=== PATIENT | female | born 1950 | race Caucasian/White ===

== ENCOUNTER 2017-10-18 22:58 | Observation (INO) | payer MEDICARE, OTHER ==
[~2017-10-18] VITALS: Ht 158.8 cm; Wt 62.7 kg
[~2017-10-18 22:58] MED LIST: BETA0.052 TOPICAL; BUPR150T3 PO; ESTR42.5V VAGINAL; LEVO75TA3 PO; META1TAB19 PO
[2017-10-18 23:20] VITALS: BP 140/71; PULSE 57; RESP 16; TEMP 98.4; O2SAT 96
[2017-10-18 23:28] VITALS: RESP 16; O2SAT 96
[2017-10-18 23:30] VITALS: BP 140/71; PULSE 60; RESP 14; O2SAT 97
[2017-10-18] MEDS ORDERED: SODIUM CHLORIDE 0.9% FLUSH 10 ML FLUSH IVF PRN (23:30)
[2017-10-18] MEDS ORDERED: ASPIRIN 81 MG CHEW TAB PO ONE (23:30)
--- NOTE | 2017-10-18 23:30 | PD ---
HPI Chief Complaint: Cardiac Complaint Time Seen by Provider: 23:02 Travel History International Travel<30 days: No Contact w/Intl Traveler<30days: No Traveled to known affect area: No History of Present Illness HPI 67-year-old female presents to the emergency department by private transportation the care of her spouse for evaluation of 5-10 minutes of retrosternal chest squeezing 7/10 intensity with radiation to both upper extremities. Patient reports that she had associated nausea and brief diaphoresis. Patient also felt short of breath during this experience. Currently discomfort is 1-2/10 in intensity and more of an awareness of actual pain or squeeze. Patient took no medications prior to arrival to the emergency department. No prior history of similar symptoms. Patient states over the past 2 days she has noted some discomfort in her upper back that at times goes into her arms but has had no chest discomfort or chest squeezing. No recent long distance travel protracted bedrest or surgical procedure no lower extremity pain or swelling. No history of clotting disorder. Pain is not pleuritic in nature. No hemoptysis. Patient denies any shortness of breath at this time. Patient feels very anxious and says something is not right. Patient denies abdominal pain. No arm or leg numbness tingling or weakness or pallor. Patient does have history of chronic pain syndrome with multiple back surgeries and does have history of disc disease of the cervical spine. Patient takes antianxiety medication. Patient has hypothyroidism. No report of hypertension dyslipidemia diabetes tobaccoism or coronary artery disease. PFSH Past Medical History Narrative Medical Hypothyroidism mitral valve prolapse multiple spinal surgery; no tobacco use; nursing notes reviewed Menopausal: Yes Past Surgical History Gynecologic Surgery: Yes (BREAST LUMPECTOMY) Neurologic Surgery: Yes (MULTIPLE SPINAL SURGERIES) Social History Alcohol Use: Yes (2 GLASSES WINE PER WEEK) Tobacco Use: No Allergies-Medications (Allergen,Severity, Reaction): Coded Allergies: orange (Unverified Allergy, Severe, 02/11/17) Reported Meds & Prescriptions Reported Meds & Active Scripts Active Bupropion HCl ER 24 HR (Bupropion HCl) 150 Mg Tab 150 Mg PO DAILY Betamethasone Dipropionate Topical 0.05% Cream 1 Applic TOPICAL BID Levothyroxine (Levothyroxine Sodium) 75 Mcg Tab 75 Mcg PO DAILY Estrace Vaginal (Estradiol) 0.01% Cream 1 Appl VAGINAL TWICE WEEKLY Reported Metaxalone 800 Mg Tab 800 Mg PO TID Review of Systems Except as stated in HPI: all other systems reviewed are Neg General / Constitutional: No: Fever, Chills HENT: No: Congestion Cardiovascular: Positive: Chest Pain or Discomfort, Diaphoresis Respiratory: Positive: Shortness of Breath Gastrointestinal: Positive: Nausea, No: Abdominal Pain Genitourinary: No: Flank Pain Musculoskeletal: No: Myalgias, Arthralgias Skin: No Rash Neurologic: No: Weakness, Dizziness, Syncope, Focal Abnormalities, Coordination Problem Psychiatric: Positive: Anxiety Hematologic/Lymphatic: No: Lymph Node Enlargement Physical Exam Narrative GENERAL: Well-developed well-nourished female no acute distress no respiratory distress appears mildly anxious SKIN: Warm and dry. HEAD: Normocephalic. EYES: No scleral icterus. No injection or drainage. NECK: Supple, trachea midline. No JVD or lymphadenopathy. CARDIOVASCULAR: Regular rate and rhythm without murmurs, gallops, or rubs. Bilateral radial and dorsalis pedis pulses 2+ to palpation and equal. RESPIRATORY: Breath sounds equal bilaterally. No accessory muscle use. GASTROINTESTINAL: Abdomen soft, non-tender, nondistended. MUSCULOSKELETAL: No cyanosis, or edema. No pallor or coolness of the extremities ; no edema or erythema capillary refill is brisk and less than 2 seconds. BACK: Nontender without obvious deformity. No CVA tenderness. Data Data Last Documented VS Vital Signs Date Time Temp Pulse Resp B/P (MAP) Pulse Ox O2 Delivery O2 Flow Rate FiO2 10/19/17 00:15 132/70 (90) 142/74 (96) 10/18/17 23:29 96 Room Air 10/18/17 23:28 16 10/18/17 23:20 98.4 57 Orders Orders Electrocardiogram (10/18/17 23:20) Ckmb (Isoenzyme) Profile (10/18/17 23:20) Complete Blood Count With Diff (10/18/17 23:20) Comprehensive Metabolic Panel (10/18/17 23:20) Magnesium (Mg) (10/18/17 23:20) Prothrombin Time / Inr (Pt) (10/18/17 23:20) Act Partial Throm Time (Ptt) (10/18/17 23:20) Troponin I (10/18/17 23:20) Lipase (10/18/17 23:20) Ecg Monitoring (10/18/17 23:20) Bilateral Bp Monitoring (10/18/17:20) Iv Access Insert/Monitor (10/18/17:20) Oximetry (10/18/17:20) Oxygen Administration (10/18/17:20) Aspirin Chew (Aspirin Chew) (10/18/17 23:30) Sodium Chloride 0.9% Flush (Ns Flush) (10/18/17 23:30) Chest, Pa & Lat (10/18/17 23:20) Sodium Chlor 0.9% 1000 Ml Inj (Ns 1000 M (10/18/17 23:30) Ketorolac Inj (Toradol Inj) (10/19/17 00:30) Admit Order (Ed Use Only) (10/19/17 ) Software Engineer / Telemetry [email or web address] (10/19/17 00:33) Diet Heart Healthy (10/19/17 Breakfast) Activity Oob With Assistance (10/19/17 00:33) Notify Dr: Other (10/19/17 00:33) Activity Bed Rest With Brp (10/19/17 00:33) Vital Signs (Adult) Q4H (10/19/17 00:33) Cardiac Rhythm .As Directed (10/19/17 00:33) Notify Dr: Other .PRN (10/19/17 00:33) Notify Parameters (10/19/17 00:33) Resp Oxygen Nasal Cannula (10/19/17 ) Ckmb (Isoenzyme) Profile (10/19/17 02:30) Ckmb (Isoenzyme) Profile (10/19/17 05:30) Troponin I (10/19/17 02:30) Troponin I (10/19/17 05:30) Electrocardiogram (10/19/17 02:30) Electrocardiogram (10/19/17 05:30) ^ Obtain (10/19/17 00:33) Sodium Chloride 0.9% Flush (Ns Flush) (10/19/17 00:45) Sodium Chloride 0.9% Flush (Ns Flush) (10/19/17 09:00) Nitroglycerin Sl (Nitrostat Sl) (10/19/17 00:45) Labs Laboratory Tests Test 10/18/17 23:25 White Blood Count 5.6 TH/MM3 Red Blood Count 4.41 MIL/MM3 Hemoglobin 13.9 GM/DL Hematocrit 40.5 % Mean Corpuscular Volume 91.8 FL Mean Corpuscular Hemoglobin 31.5 PG Mean Corpuscular Hemoglobin Concent 34.3 % Red Cell Distribution Width 12.1 % Platelet Count 190 TH/MM3 Mean Platelet Volume 8.2 FL Neutrophils (%) (Auto) 48.8 % Lymphocytes (%) (Auto) 40.8 % Monocytes (%) (Auto) 7.6 % Eosinophils (%) (Auto) 1.2 % Basophils (%) (Auto) 1.6 % Neutrophils # (Auto) 2.7 TH/MM3 Lymphocytes # (Auto) 2.3 TH/MM3 Monocytes # (Auto) 0.4 TH/MM3 Eosinophils # (Auto) 0.1 TH/MM3 Basophils # (Auto) 0.1 TH/MM3 CBC Comment DIFF FINAL Differential Comment Prothrombin Time 10.2 SEC Prothromb Time International Ratio 1.0 RATIO Activated Partial Thromboplast Time 24.0 SEC Blood Urea Nitrogen 26 MG/DL Creatinine 1.00 MG/DL Random Glucose 115 MG/DL Total Protein 7.1 GM/DL Albumin 3.7 GM/DL Calcium Level 9.0 MG/DL Magnesium Level 2.3 MG/DL Alkaline Phosphatase 53 U/L Aspartate Amino Transf (AST/SGOT) 25 U/L Alanine Aminotransferase (ALT/SGPT) 22 U/L Total Bilirubin 0.2 MG/DL Sodium Level 141 MEQ/L Potassium Level 4.1 MEQ/L Chloride Level 108 MEQ/L Carbon Dioxide Level 27.3 MEQ/L Anion Gap 6 MEQ/L Estimat Glomerular Filtration Rate 55 ML/MIN Total Creatine Kinase 63 U/L Troponin I LESS THAN 0.02 NG/ML Lipase 106 U/L [facility] Medical Decision Making Medical Screen Exam Complete: Yes Emergency Medical Condition: Yes Medical Record Reviewed: Yes Interpretation(s) EKG: Sinus bradycardia rate [address] elevation or injury pattern change noted Last Impressions Chest X-Ray 10/18/170 Signed Impressions: Service Date/Time: Wednesday, October 18, 2017 23:39 - CONCLUSION: No acute disease. Kenn Trevino MD CBC & BMP Diagram 10/18/17 23:25 Total Protein 7.1, Albumin 3.7, Calcium Level 9.0, Magnesium Level 2.3, Alkaline Phosphatase 53, Aspartate Amino Transf (AST/SGOT) 25, Alanine Aminotransferase (ALT/SGPT) 22, Total Bilirubin 0.2 Vital Signs Date Time Temp Pulse Resp B/P (MAP) Pulse Ox O2 Delivery O2 Flow Rate FiO2 10/19/17 00:15 132/70 (90) 142/74 (96) 10/18/17 23:29 96 Room Air 10/18/17 23:28 16 96 Room Air 10/18/17 23:20 98.4 57 16 140/71 (94) 96 10/18/17 23:20 57 16 96 Room Air Troponin: Less than 0.02, not elevated; CK total 63, not elevated Differential Diagnosis Chest pain, ACS, myocardial infarction, aortic dissection, PE, esophageal spasm Narrative Course Patient placed on classroom monitor IV access obtained patient administered aspirin 162 mg by mouth chewed an EKG performed shows sinus bradycardia rate of [address] elevation or injury pattern change noted @ 00:25 cp 0/10 but c/o headache ---toradol 30 mg iv administered Patient is aware of recommendation for observation admission via chest pain center protocol Physician Communication Physician Communication discussed with Dr Chacon --beef ribber obs Diagnosis Primary Impression: Chest pain Admitting Information Admitting Physician Requests: Observation Caitlyn Michaud MD Oct 18, 2017 23:30
[2017-10-18] MEDS: SODIUM CHLOR 0.9% 1000 ML INJ 1,000 ML IV SCH (23:37)
[2017-10-18 23:42] LABS: AUTOMATED NEUTROPHIL # 2.7 TH/MM3 (1.8-7.7); BASOPHIL # 0.1 TH/MM3 (0-0.2); BASOPHIL % 1.6 % (0.0-2.0); EOSINOPHIL # 0.1 TH/MM3 (0-0.4); EOSINOPHIL % 1.2 % (0.0-4.0); HEMATOCRIT 40.5 % (35.0-46.0); HEMOGLOBIN 13.9 GM/DL (11.6-15.3); LYMPH % 40.8 % (9.0-44.0); LYMPHOCYTE # 2.3 TH/MM3 (1.0-4.8); MEAN CELL VOLUME 91.8 FL (80.0-100.0); MEAN CORPUSCULAR HEMOGLOBIN 31.5 PG (27.0-34.0); MEAN CORPUSCULAR HGB CONC 34.3 % (32.0-36.0); MEAN PLATELET VOLUME 8.2 FL (7.0-11.0); MONO % 7.6 % (0.0-8.0); MONOCYTE # 0.4 TH/MM3 (0-0.9); NEUT % 48.8 % (16.0-70.0); PLATELET COUNT 190 TH/MM3 (150-450); RED BLOOD COUNT 4.41 MIL/MM3 (4.00-5.30); RED CELL DISTRIBUTION WIDTH 12.1 % (11.6-17.2); WHITE BLOOD COUNT 5.6 TH/MM3 (4.0-11.0)
[2017-10-18 23:45] LABS: CHLORIDE 108 MEQ/L (98-107); SODIUM (NA) 141 MEQ/L (136-145)
[2017-10-18 23:50] LABS: PROTHROMBIN TIME - PATIENT 10.2 SEC (9.8-11.6)
[2017-10-18 23:52] LABS: ALBUMIN 3.7 GM/DL (3.4-5.0); BICARBONATE 27.3 MEQ/L (21.0-32.0); BLOOD UREA NITROGEN 26 MG/DL (7-18); GLUCOSE,RANDOM 115 MG/DL (74-106); MAGNESIUM 2.3 MG/DL (1.5-2.5)
[2017-10-18 23:55] LABS: ALT (GPT) 22 U/L (10-53); AST (GOT) 25 U/L (15-37); GLOMERULAR FILTRATION RATE 55 ML/MIN (>89)
[2017-10-18 23:56] LABS: TOTAL BILIRUBIN ADULT 0.2 MG/DL (0.2-1.0); TOTAL PROTEIN 7.1 GM/DL (6.4-8.2)
[2017-10-18 23:58] LABS: ALKALINE PHOSPHATASE 53 U/L (45-117)
[2017-10-19] VITALS (14 sets, daily range): BP systolic 123–151; BP diastolic 60–75; PULSE 50–58; RESP 14–19; TEMP 97.7–98.4; O2SAT 95–100
[2017-10-19] LABS: TROPONIN I LESS THAN 0.02 NG/ML (0.02-0.05)
--- NOTE | 2017-10-19 00:18 | RADRPT ---
EXAM DATE/TIME: 10/18/2017 23:39 [facility] COMPARISON: No previous studies available for comparison. INDICATIONS : Substernal chest pain. MEDICAL HISTORY : Mitral valve prolapse. SURGICAL HISTORY : Fusion, cervical. Right breast lumpectomy. ENCOUNTER: Initial ACUITY: 1 day PAIN SCORE: 4/10 LOCATION: chest Substernal. FINDINGS: PA and lateral views of the chest demonstrate the lungs to be symmetrically aerated without evidence of mass, infiltrate or effusion. The cardiomediastinal contours are unremarkable. Osseous structure s are intact. CONCLUSION: No acute disease. Kenn Trevino MD on October 19, 2017 at 0:14 Board Certified Radiologist. This report was verified electronically.
[2017-10-19] MEDS ORDERED: KETOROLAC TROMETHAMINE 30 MG/ML (IVP) VIAL IV PUSH ONE (00:30)
[2017-10-19] MEDS ORDERED: SODIUM CHLORIDE 0.9% FLUSH 10 ML FLUSH IV FLUSH PRN (00:45)
[2017-10-19] MEDS ORDERED: NITROGLYCERIN 0.4 MG SL 25 TABS/BTL SL PRN (00:45)
[2017-10-19 02:49] LABS: TROPONIN I LESS THAN 0.02 NG/ML (0.02-0.05)
[2017-10-19 06:14] LABS: TROPONIN I LESS THAN 0.02 NG/ML (0.02-0.05)
[2017-10-19] MEDS: SODIUM CHLOR 0.9% 1000 ML INJ 1,000 ML IV SCH (08:39)
[2017-10-19] MEDS ORDERED: SODIUM CHLORIDE 0.9% FLUSH 10 ML FLUSH IV FLUSH SCH (09:00)
[2017-10-19] MEDS ORDERED: ASPIRIN 325 MG TAB PO SCH (09:00)
--- NOTE | 2017-10-19 09:34 | HHI.HP ---
[facility] Vera Moe MD Admission Diagnosis Chest pain Diagnoses: Chief Complaint: Chest pain Travel History International Travel<30 Days: No Contact w/Intl Traveler <30 Da: No Traveled to Known Affected Are: No History of Present Illness This is a 67-year-old female patient with a known medical history o hypothyroidism and mitral valve prolapse who presented to the ED with complaints of chest pain. Patient states last evening while at rest she developed a midsternal chest pain that was characterized as squeezing and pressure in nature, patient states the pain radiated through her back and down her left arm. Patient does admit to associated diaphoresis, nausea and shortness of breath although denies any associated vomiting. Patient states she is never had this type of pain before. The chest pain was rated a 7 out of 10 at its worst on pain scale, lasted several minutes and then went away on its own. Patient denies any known relieving or aggravating factors. Patient does state she has a history of back pain and it has been worse for the past couple days. She sees a pain specialist and has underwent multiple spinal surgeries. Patient denies any tobacco history. Denies any significant family medical history of heart disease. Was diagnosed with mitral valve prolapse as a child. Denies any recent illness including fever, chills, cough, abdominal pain, nausea, vomiting, diarrhea or dysuria. Review of Systems Constitutional: DENIES: Fatigue, Fever, Chills Eyes: DENIES: Blurred vision Respiratory: COMPLAINS OF: Shortness of breath, DENIES: Cough, Sputum production Cardiovascular: COMPLAINS OF: Chest pain, DENIES: Palpitations Gastrointestinal: COMPLAINS OF: Nausea, DENIES: Abdominal pain, Black stools, Bloody stools, Constipation, Diarrhea Musculoskeletal: COMPLAINS OF: Back pain, DENIES: Joint pain Hematologic/lymphatic: DENIES: Bruising Psychiatric: COMPLAINS OF: Anxiety Except as stated in HPI: all other systems reviewed are Neg Past Family Social History Past Medical History Chronic back pain Hypothyroidism History of mitral valve prolapse Past Surgical History Unspecified multiple spinal surgeries History of right breast lumpectomy, benign Reported Medications Active Bupropion HCl ER 24 HR (Bupropion HCl) 150 Mg Tab 150 Mg PO DAILY Levothyroxine (Levothyroxine Sodium) 75 Mcg Tab 75 Mcg PO DAILY Estrace Vaginal (Estradiol) 0.01% Cream 1 Appl VAGINAL TWICE WEEKLY Reported Metaxalone 800 Mg Tab 800 Mg PO TID Allergies: Coded Allergies: orange (Unverified Allergy, Severe, 02/11/17) Active Ordered Medications Current Medications Medications (Trade) Dose Ordered Sig/Thiago Route Start Time Stop Time Status Last Admin Sodium Chloride 1,000 ml @ 100 mls/hr Q10H IV 10/18/17 23:30 10/19/17 08:39 (NS Flush) 2 ml UNSCH PRN IV FLUSH 10/19/17 00:45 (NS Flush) 2 ml BID IV FLUSH 10/19/17 09:00 10/19/17 08:46 (Nitrostat Sl) 0.4 mg Q5M PRN SL 10/19/17 00:45 (Aspirin) 325 mg DAILY PO 10/19/17 09:00 10/19/17 08:42 (Tylenol) 650 mg Q4H PRN PO 10/19/17 14:00 10/19/17 13:33 Family History Maternal medical history significant for stroke and lung cancer. Father had lung cancer as well. Social History Patient denies any tobacco abuse. Does admit to occasional alcohol use. Denies illicit drug use. Physical Exam Vital Signs Vital Signs Date Time Temp Pulse Resp B/P (MAP) Pulse Ox O2 Delivery O2 Flow Rate FiO2 10/19/17 08:00 98.4 54 18 149/69 (95) 95 10/19/17 07:55 10/19/17 07:15 98.0 51 16 126/62 (83) 100 Room Air 10/19/17 07:15 51 16 100 Room Air 10/19/17 05:30 50 14 142/75 (97) 98 Room Air 10/19/17 04:30 54 16 123/60 (81) 100 Room Air 10/19/17 03:30 58 16 131/63 (85) 97 Room Air 10/19/17 02:30 54 16 151/73 (99) 97 Room Air 10/19/17 02:07 99 21 10/19/17 01:43 16 10/19/17 01:30 52 14 134/70 (91) 99 Room Air 10/19/17 01:00 54 14 136/69 (91) 97 Room Air 10/19/17 00:30 56 16 142/74 (96) 96 Room Air 10/19/17 00:15 132/70 (90) 142/74 (96) 10/19/17 00:00 54 14 132/70 (90) 96 Room Air 10/18/17 23:30 60 14 140/71 (94) 97 Room Air 10/18/17 23:29 96 Room Air 10/18/17 23:28 16 96 Room Air 10/18/17 23:20 98.4 57 16 140/71 (94) 96 10/18/17 23:20 57 16 96 Room Air Physical Exam GENERAL: Well-developed, well-nourished patient in [facility]. SKIN: Warm and dry. No rash. HEAD: Normocephalic. Atraumatic. EYES: Pupils equal and round. No scleral icterus. No injection or drainage. ENT: No nasal bleeding or discharge. Mucous membranes pink and moist. NECK: Supple. Trachea midline. CARDIOVASCULAR: Regular rate and rhythm. S1, S2 noted. No murmur appreciated. No chest pain to palpation RESPIRATORY: No accessory muscle use. Clear to auscultation. Breath sounds equal bilaterally. GASTROINTESTINAL: Abdomen soft, non-tender, nondistended. Normoactive bowel sounds x4. MUSCULOSKELETAL: No obvious deformities. Extremities without clubbing, cyanosis , or edema. NEUROLOGICAL: Awake and alert. No obvious cranial nerve deficits. Motor grossly within normal limits. 5/5 muscle strength in bilateral upper and lower extremities. Normal speech. PSYCHIATRIC: Appropriate mood and affect; insight and judgment normal. Laboratory Laboratory Tests Test 10/18/17 23:25 10/19/17 02:20 10/19/17 05:37 White Blood Count 5.6 Red Blood Count 4.41 Hemoglobin 13.9 Hematocrit 40.5 Mean Corpuscular Volume 91.8 Mean Corpuscular Hemoglobin 31.5 Mean Corpuscular Hemoglobin Concent 34.3 Red Cell Distribution Width 12.1 Platelet Count 190 Mean Platelet Volume 8.2 Neutrophils (%) (Auto) 48.8 Lymphocytes (%) (Auto) 40.8 Monocytes (%) (Auto) 7.6 Eosinophils (%) (Auto) 1.2 Basophils (%) (Auto) 1.6 Neutrophils # (Auto) 2.7 Lymphocytes # (Auto) 2.3 Monocytes # (Auto) 0.4 Eosinophils # (Auto) 0.1 Basophils # (Auto) 0.1 CBC Comment DIFF FINAL Differential Comment Prothrombin Time 10.2 Prothromb Time International Ratio 1.0 Activated Partial Thromboplast Time 24.0 Blood Urea Nitrogen 26 Creatinine 1.00 Random Glucose 115 Total Protein 7.1 Albumin 3.7 Calcium Level 9.0 Magnesium Level 2.3 Alkaline Phosphatase 53 Aspartate Amino Transf (AST/SGOT) 25 Alanine Aminotransferase (ALT/SGPT) 22 Total Bilirubin 0.2 Sodium Level 141 Potassium Level 4.1 Chloride Level 108 Carbon Dioxide Level 27.3 Anion Gap 6 Estimat Glomerular Filtration Rate 55 Total Creatine Kinase 63 55 54 Troponin I LESS THAN 0.02 LESS THAN 0.02 LESS THAN 0.02 Lipase 106 Result Diagram: 10/18/17232410/18/172324 Imaging Last Impressions Myocardial Perfusion Scan Nuc Med 10/19/17 0000 Signed Impressions: Service Date/Time: Thursday, October 19, 2017 11:48 - CONCLUSION: 1. Unremarkable myocardial perfusion scan. RISK CATEGORY: Low (<1%% Annual Mortality Rate ) Vargas Oconnell MD Chest X-Ray 10/18/172319 Signed Impressions: Service Date/Time: Wednesday, October 18, 2017 23:39 - CONCLUSION: No acute disease. Kenn Trevino MD Septic Shock Reassessment Septic shock perfusion: reassessment completed Caprini VTE Risk Assessment Caprini VTE Risk Assessment: Mod/High Risk (score >= 2) Caprini Risk Assessment Model Point Value = 1 Point Value = 2 Point Value = 3 Point Value = 5 Age 41-60 Minor surgery BMI > 25 kg/m2 Swollen legs Varicose veins or History of unexplained or recurrent spontaneous Oral contraceptives or hormone replacement Sepsis (< 1 month) Serious lung disease, including pneumonia (< 1 month) Abnormal pulmonary function Acute myocardial infarction Congestive heart failure (< 1 month) History of inflammatory bowel disease Medical patient at bed rest Age 61-74 Arthroscopic surgery Major open surgery (> 45 min) Laparoscopic surgery (> 45 min) Malignancy Confined to bed (> 72 hours) Immobilizing plaster cast Central venous access Age >= 75 History of VTE Family history of VTE Factor V Leiden Prothrombin [id number] Lupus anticoagulant Anticardiolipin antibodies Elevated serum homocysteine Heparin-induced thrombocytopenia Other congenital or acquired thrombophilia Stroke (< 1 month) Elective arthroplasty Hip, pelvis, or leg fracture Acute spinal cord injury (< 1 month) Prophylaxis Regimen Total Risk Factor Score Risk Level Prophylaxis Regimen 0-1 Low Early ambulation 2 Moderate Order ONE of the following: *Sequential Compression Device (SCD) *Heparin 5000 units SQ BID 3-4 Higher Order ONE of the following medications: *Heparin 5000 units SQ TID *Enoxaparin/Lovenox 40 mg SQ daily (WT < 150 kg, CrCl > 30 mL/min) *Enoxaparin/Lovenox 30 mg SQ daily (WT < 150 kg, CrCl > 10-29 mL/min) *Enoxaparin/Lovenox 30 mg SQ BID (WT < 150 kg, CrCl > 30 mL/min) AND/OR *Sequential Compression Device (SCD) 5 or more Highest Order ONE of the following medications: *Heparin 5000 units SQ TID (Preferred with Epidurals) *Enoxaparin/Lovenox 40 mg SQ daily (WT < 150 kg, CrCl > 30 mL/min) *Enoxaparin/Lovenox 30 mg SQ daily (WT < 150 kg, CrCl > 10-29 mL/min) *Enoxaparin/Lovenox 30 mg SQ BID (WT < 150 kg, CrCl > 30 mL/min) AND *Sequential Compression Device (SCD) Assessment and Plan Problem List: (1) Chest pain ICD Code: R07.9 - Chest pain, unspecified Status: Acute Plan: Patient has been admitted to the observation unit for chest pain. Serial EKGs and serial troponins have been ordered for ruling out ACS purposes. Troponin trend flat. EKG reviewed showing sinus bradycardia with controlled heart rate. No ST changes to indicate any ischemia. ACS is ruled out. Chest pain is now resolved. Chest x-ray reviewed showing no acute cardiopulmonary disease. Supplemental oxygen as needed, patient has been comfortable on room air. Patient has been started on aspirin. Vital signs are stable. Toradol was given x1 in ED. Nitroglycerin available as needed for pain. CBC and BMP reviewed, essentially unremarkable. Patient underwent a cardiac nuclear stress test with reports reviewed showing EF of 59%. Unremarkable myocardial perfusion scan. Low risk. Patient has been updated, will be discharged home for follow-up to PCP. Patient does have an appointment with her pain management /neurosurgeon tomorrow. Encourage patient to return to ED if symptoms persist or worsen. Patient is stable at this time and agreeable to the plan. Tiffani Reza Oct 19, 2017 09:34
[2017-10-19] MEDS ORDERED: REGADENOSON INJ 0.4 MG/5 ML SYR IV ONE (11:59)
--- NOTE | 2017-10-19 12:43 | EKG ---
Date Performed: 10/19/2017 Time Performed: 02:35:52 PTAGE: 67 years EKG: SINUS BRADYCARDIA NONSPECIFIC T-WAVE ABNORMALITY BORDERLINE ECG NO PREVIOUS TRACING DOCTOR: Vargas Nunez Interpretating Date/Time 10/19/2017 12:42:16
--- NOTE | 2017-10-19 12:44 | EKG ---
Date Performed: 10/18/2017 Time Performed: 23:23:11 PTAGE: 67 years EKG: SINUS BRADYCARDIA NONSPECIFIC T-WAVE ABNORMALITY BORDERLINE ECG NO PREVIOUS TRACING DOCTOR: Vargas Nunez Interpretating Date/Time 10/19/2017 12:42:55
--- NOTE | 2017-10-19 12:45 | EKG ---
Date Performed: 10/19/2017 Time Performed: 05:47:22 PTAGE: 67 years EKG: SINUS BRADYCARDIA NONSPECIFIC T-WAVE ABNORMALITY BORDERLINE ECG PREVIOUS TRACING : 10/19/2017 02.35 Since previous tracing, no significant change noted DOCTOR: Vargas Nunez Interpretating Date/Time 10/19/2017 12:43:39
[2017-10-19] MEDS ORDERED: ACETAMINOPHEN 325 MG TAB PO PRN (14:00)
--- NOTE | 2017-10-19 14:18 | RADRPT ---
EXAM DATE/TIME: 10/19/2017 11:48 [facility] COMPARISON: No previous studies available for comparison. INDICATIONS : Retrosternal chest pain. Angina. DOSE: 26.5 mCi Tc99m Myoview at stress. 8.1 mCi Tc99m Myoview at rest. 0.4 mg Lexiscan STRESS SYMPTOMS: Short of breath. EJECTION FRACTION: 59% MEDICAL HISTORY : Hypertension. SURGICAL HISTORY : Back surgery and breast lumpectomy. ENCOUNTER: Initial ACUITY: 1 day PAIN SCALE: 7/10 LOCATION: Retrosternal chest TECHNIQUE: The patient underwent pharmacologic stress with infusion of prescribed dose. Continuous ECG tracing was monitored during stress. Gated SPECT imaging was performed after stress and conventional SPECT i maging was performed at rest. The examination was performed on a SPECT/CT scanner, both attenuation and non-corrected datasets were reviewed. FINDINGS: DISTRIBUTION: The maximum perfused segment at stress is in the anterolateral wall. PERFUSION STUDY: The pattern of perfusion at stress is within normal limits. GATED STUDY: There is intact wall motion and thickening without hypokinetic or dyskinetic segments. CONCLUSION: 1. Unremarkable myocardial perfusion scan. RISK CATEGORY: Low (<1% Annual Mortality Rate) Vargas Oconnell MD on October 19, 2017 at 14:06 Board Certified Radiologist. This report was verified electronically.
--- NOTE | 2017-10-19 14:28 | HHI.DCPOC ---
Discharge Care Plan Diagnosis: (1) Chest pain Goals to Promote Your Health * To prevent worsening of your condition and complications * To maintain your health at the optimal level Directions to Meet Your Goals Take your medications as prescribed Follow your dietary instruction Follow activity as directed Keep your appointments as scheduled Take your immunizations and boosters as scheduled If your symptoms worsen call your PCP, if no PCP go to Urgent Care Center or Emergency Room Smoking is Dangerous to Your Health. Avoid second hand smoke Call the 24-hour hour crisis hotline for domestic abuse at Tiffani Reza Oct 19, 2017 14:28
--- NOTE | 2017-10-21 15:01 | M6 ---
cc: Alycia Norton MD DATE: 10/21/2017 DATE OF : 1950 PROCEDURE PERFORMED: Injection botulinum toxin type A (Xeomin) right trapezius and posterior cervical musculature. 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 History and physical was completed and signed. Consent was signed. Procedure site was marked. Medications were listed and reconciled. Pain score was recorded. Allergies were noted. Time out was taken. Fluoroscopy time was recorded where applicable. PROCEDURE NOTE: Blood pressure cuff and pulse oximeter were applied. The patient was placed in a sitting position. The skin over the right trapezius and posterior cervical area was prepped with alcohol. The areas of greatest spasticity were identified. A 27-gauge needle was used to inject a total of 180 units of Xeomin at 6 different locations corresponding to the areas of greatest spasticity. Following this, the patient was observed in the recovery area with stable vital signs prior to being discharged. MD NICOLASA Pineda/HARPREET , 02:41 PM , 03:00 PM
--- NOTE | 2017-10-26 12:52 | TR ---
Date Performed: 10/19/2017 Time Performed: 12:23:16 DOCTOR: Vargas Nunez DRUG LIST: CLINICAL HISTORY: REASON FOR TEST: REASON FOR ENDING: OBSERVATION: CONCLUSION: COMMENTS: Lexiscan stress test was performed under standard four minute protocol. Radionuclide was injected one minute prior to ending the test. No electrocardiographic abormalities were present t o suggest ischemia. Nuclear imaging and interpretation are pending.
== END 2017-10-19 15:15 | disposition home or self-care (01) ==
LOC: PHED 22:58 → PHEDA 10-19 00:36 → PHEDH 10-19 04:38 → PH3B 10-19 08:30
PROVIDERS: ADMIT Hospitalist; ATTEND Hospitalist
DX: R07.89 Other chest pain (principal); G24.1 Genetic torsion dystonia; R00.1 Bradycardia, unspecified; M79.602 Pain in left arm; R06.02 Shortness of breath; R61 Generalized hyperhidrosis; R11.0 Nausea; R51 Headache; E03.9 Hypothyroidism, unspecified; M54.9 Dorsalgia, unspecified; G89.4 Chronic pain syndrome; Z79.899 Other long term (current) drug therapy
CPT/HCPCS: 71046; 78452; 80053; 82550; 83690; 83735; 84484; 85025; 85610; 85730; 93005; 93017; 96361; 96374; 99285; A9502; G0378; J1885; J2785; J7030

== ENCOUNTER → 2017-10-29 | Outpatient (CLI) | payer MEDICARE, OTHER ==
[~2017-10-29] MED LIST changes: -BETA0.052 TOPICAL
== END ==
LOC: PLAB 12:40
PROVIDERS: ATTEND Family Medicine
DX: E03.9 Hypothyroidism, unspecified (principal)
CPT/HCPCS: 36415; 84443

== ENCOUNTER → 2017-12-14 | Day surgery (SDC) | payer MEDICARE, OTHER ==
[~2017-12-14] MED LIST changes: +BUPIVACAINE HCL PF 0.5% 30 ML VIAL ONE; +IBUP1TAB5 PO; -META1TAB19 PO; +PROPOFOL 200 MG/20 ML AMP IV ONE; +TRIAMCINOLONE ACETONIDE 40 MG/ML VIAL I-ARTICULR ONE; +methylPREDNISolone ACETATE 40 MG/ML VIAL I-ARTICULR ONE
--- NOTE | 2017-12-14 09:09 | M6 ---
cc: Alycia Norton MD DATE: 12/14/2017 PROCEDURE PERFORMED: Fluoroscopically-guided injection of bilateral sacroiliac joints. History and physical was completed and signed. Consent was signed. Procedure site was marked. Medications were listed and reconciled. Pain score was recorded. Allergies were noted. Time out was taken. Fluoroscopy time was recorded where applicable. Sedation was administered or directed by Dr. Norton. The patient was given oxygen. The patient was monitored by a registered nurse. Total procedure time was greater than 15 minutes. PROCEDURE NOTE: IV was started. Blood pressure cuff, pulse oximeter and EKG were applied. The patient was placed in the prone position on a Jeremias table, sedated with small amounts of propofol titrated to effect. Vital signs were monitored and remained stable throughout the procedure. The sacral area was prepped with alcohol and 10% Betadine solution, draped with sterile drapes. Fluoroscopy was used shooting from medial to lateral to clearly visualize the posterior joint line of the bilateral sacroiliac joints. Separate sterile 5 inch, 22-gauge spinal needles were advanced into these joints under fluoroscopic guidance. There was negative aspiration for blood or any other type of fluid and at each location, the patient was given 1-1/2 mL of 0.5% Marcaine, 20 mg of Depo-Medrol, 20 mg of Kenalog. Following the procedure, the patient was taken to the recovery room with stable vital signs neurologically intact. She will be evaluated immediately and with followup to determine if she has a subjective decrease in her usual pain and a corresponding objective increase in her functional capabilities. MD SYLVIA PinedaM/DL , 08:54 AM , 09:07 AM
--- NOTE | 2017-12-14 09:13 | M5 ---
cc: Alycia Norton MD DATE OF CONSULT: 12/14/2017 HISTORY OF PRESENT ILLNESS: Earlier today, we injected Ms. Brink's bilateral sacroiliac joints, but the patient wants to talk about a completely different problem and that is her frequent daily headaches and posterior neck and shoulder pain, right greater than the left. On 10/21/2017, and then again on 11/03/2017, we injected her right trapezius and posterior cervical musculature. She reports today that the frequency of her headaches and the intensity of her headaches is considerably less. She has been living with these headaches for many years. The headaches have not completely gone away, but she states that they are greatly improved. She still notices when she looks in the mirror that her right shoulder is higher than her left. PHYSICAL EXAM: On physical exam, the right trapezius and posterior cervical musculature are still firm and tender to palpation. She is tender along the nuchal ridge over the occipital nerve. ASSESSMENT AND PLAN: The patient is leaving the country during the month of January and will not be back until February. I have explained to the patient that typical duration of Botox is 3-4 months, so I would expect the Botox to wear off toward the end of January and I would expect that her headaches will increase in frequency and intensity during the month of February. She understands this time line. She will keep track of her headaches and when she gets back into the [place], will contact us. Assuming that her headaches worsen, then we probably would recommend repeating Botox injection. MD NICOLASA Pineda/KONRAD , 08:57 AM , 09:12 AM
== END | disposition home or self-care (01) ==
LOC: PHSDC 06:56
PROVIDERS: ATTEND Pain Medicine Interventional Pain Medicine
DX: M54.5 Low back pain (principal)
CPT/HCPCS: 99152; G0260; J1030; J3301; 27096